=== PATIENT | female | born 1945 | race Two or more races ===

== ENCOUNTER 2019-02-16 10:03 | Day surgery (SDC) | payer MEDICARE, OTHER ==
[~2019-02-16 10:03] MED LIST: CEFAZOLIN 2 GM/50 ML (PMX) 50 ML IVPB; LACTATED RINGER'S 1,000 ML IV*
[2019-02-16] MEDS ORDERED: BUPIVACAINE 0.5% (SDV) 30 ML INJ (11:46)
[2019-02-16] MEDS ORDERED: CEFAZOLIN 1 GM INJ (12:23)
[2019-02-16] MEDS: BUPIVACAINE 0.5% (SDV) 30 ML INJ INJ (12:56)
[2019-02-16] MEDS ORDERED: OXYCODONE/ACETAMINOPHEN (5/325) TAB PO (13:00)
[2019-02-16] MEDS ORDERED: HYDROmorphONE 1 MG/5 ML IV SYRINGE IV (13:00)
[2019-02-16] MEDS ORDERED: ONDANSETRON 4 MG INJ IV (13:00)
[2019-02-16] MEDS ORDERED: KETOROLAC 30 MG INJ IV (13:00)
[2019-02-16] MEDS ORDERED: FENTAnyl 50 MCG/ML VIAL IV (13:00)
== END 2019-02-16 14:52 | disposition home or self-care (01) ==
LOC: SDS 10:03
DX: D21.11 Benign neoplasm of connective and other soft tissue of right upper limb, including shoulder (principal); I10 Essential (primary) hypertension; E78.5 Hyperlipidemia, unspecified
CPT/HCPCS: 26115; 88307; 88341; 88342